=== PATIENT | male | born 1950 | race Caucasian/White ===

== ENCOUNTER → 2016-04-28 | Outpatient (CLI) | payer OTHER, MEDICARE ==
[~2016-04-28] MED LIST: OLME1TAB25 PO; ROSU5TAB5 PO; allopurinol PO
--- NOTE | 2016-04-28 10:41 | RADRPT ---
PROCEDURE: XR Pelvis and Hips. CLINICAL INDICATION: Pelvic pain. Bilateral hip pain. TECHNIQUE: Five views. Frontal pelvis. Frontal and lateral right hip. Frontal and lateral left hip. COMPARISON: 07/29/2013. FINDINGS: There are mild degenerative changes of the right hip with osteophytes noted. There is no joint spac e narrowing. 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 There is no lytic or blastic lesion. IMPRESSION: 1. Mild degenerative change of the right hip. 2. Satisfactory postoperative appearance of the left hip total arthroplasty. RPTAT: QQ .Damian Wade MD, MD Date Time Electronically viewed and signed by .Damian Wade MD, MD on 04/28/2016 10:41 .R/
--- NOTE | 2016-04-28 10:48 | RADRPT ---
PROCEDURE: Left knee radiographs. CLINICAL INDICATION: Left knee pain. TECHNIQUE: Four views. Weight bearing. Frontal, lateral, oblique, and patellar view. COMPARISON: No prior studies are available for comparison. FINDINGS: There is no fracture or dislocation. The soft tissues are normal. Articular surfaces are intact. There is no lytic or blastic lesion. There is no radiopaque foreign body. IMPRESSION: 1. Normal images of the left knee. RPTAT: QQ .Damian Wade MD, MD Date Time Electronically viewed and signed by .Damian Wade MD, MD on 04/28/2016 10:48 .R/
== END | disposition home or self-care (01) ==
LOC: HKI 08:59
PROVIDERS: ATTEND Orthopaedic Surgery
DX: S83.232A Complex tear of medial meniscus, current injury, left knee, initial encounter (principal); X58.XXXA Exposure to other specified factors, initial encounter; Z96.642 Presence of left artificial hip joint
CPT/HCPCS: 73523; 73564; G0463

== ENCOUNTER → 2016-06-09 | Outpatient (CLI) | payer OTHER, MEDICARE ==
--- NOTE | 2016-06-09 16:26 | RADRPT ---
PROCEDURE: XR Chest. CLINICAL INDICATION: Preoperative evaluation. TECHNIQUE: Single frontal chest x-ray. COMPARISON: None available FINDINGS: The lungs are clear. No focal opacification is seen. No pneumothorax or pleural effusion is seen. The cardiomediastinal silhouette is unremarkable. The osseous structures are grossly unremarkable. IMPRESSION: No evidence of acute cardiopulmonary disease. RPTAT: JJ .Selvin Salgado MD, MD Date Time Electronically viewed and signed by .Selvin Salgado MD, MD on 06/09/2016 16:26 .A/
== END | disposition home or self-care (01) ==
LOC: HKI 14:04
PROVIDERS: ATTEND Orthopaedic Surgery
DX: Z01.818 Encounter for other preprocedural examination (principal); S83.232A Complex tear of medial meniscus, current injury, left knee, initial encounter; X58.XXXA Exposure to other specified factors, initial encounter; M25.562 Pain in left knee
CPT/HCPCS: 71010; G0463

== ENCOUNTER → 2016-06-18 | Outpatient (CLI) | payer OTHER, MEDICARE | END | disposition home or self-care (01) | LOC: HKI 08:55 | PROVIDERS: ATTEND Orthopaedic Surgery | DX: S83.232D Complex tear of medial meniscus, current injury, left knee, subsequent encounter (principal) ==

== ENCOUNTER → 2016-07-16 | Outpatient (CLI) | payer OTHER, MEDICARE | END | disposition home or self-care (01) | LOC: HKI 08:25 | PROVIDERS: ATTEND Orthopaedic Surgery | DX: S83.232D Complex tear of medial meniscus, current injury, left knee, subsequent encounter (principal); X58.XXXD Exposure to other specified factors, subsequent encounter ==